=== PATIENT | male | born 1980 | race Caucasian/White ===

== ENCOUNTER → 2017-05-12 | Outpatient (CLI) | payer OTHER ==
[~2017-05-12] MED LIST: CHOL100010 PO; CYAN500T13 PO; ESOM20CA PO; IBUP-1451 PO; IMD/2 PO; PSEU30TA20 PO; PSYL55.43 PO; SILO4CAP PO
--- NOTE | 2017-05-12 08:34 | DIAGNOSTIC IMAGING REPORT ---
[facility]UB CLINICAL HISTORY: N20.0 [id number] COMPARISON STUDY: 07/18/2016 FINDINGS: There is no pathologic bowel dilatation. There is scattered stool within the colon. No urinary tract calculi are visualized on conventional radiographic evaluation. IMPRESSION: No calculi identified. Electronically signed by: Vimal Juarez M.D. 05/12/2017 8:32 AM Dictated Date/Time: 05/12/2017 8:32 AM
== END | disposition home or self-care (01) ==
LOC: C.RAD 08:11
PROVIDERS: ATTEND Urology
DX: N20.0 Calculus of kidney (principal)